=== PATIENT | female | born 2000 | race Caucasian/White ===

== ENCOUNTER 2022-12-02 16:23 | Emergency (ER) | payer OTHER ==
[~2022-12-02] VITALS: Ht 160 cm; Wt 50.5 kg
[2022-12-02 16:42] VITALS: BP 110/76; PULSE 112; RESP 20; TEMP 98.2; O2SAT 90
[2022-12-02 17:34] LABS: FLU A ANTIGEN negative (NEGATIVE); FLU B ANTIGEN NEGATIVE (NEGATIVE)
[2022-12-02 18:53] VITALS: BP 110/76; PULSE 112; RESP 20; TEMP 98.2; O2SAT 90
== END 2022-12-02 18:53 | disposition left against medical advice (07) ==
LOC: MED 16:23
DX: J02.9 Acute pharyngitis, unspecified (principal); Z20.822 Contact with and (suspected) exposure to COVID-19; R11.2 Nausea with vomiting, unspecified; Z53.21 Procedure and treatment not carried out due to patient leaving prior to being seen by health care provider
CPT/HCPCS: 99281